=== PATIENT | female | born 1965 | race Caucasian/White ===

== ENCOUNTER → 2020-08-06 12:57 | Outpatient (CLI) | payer OTHER, SELFPAY ==
--- NOTE | ~2020-08-06 | CT_ITS ---
EXAMINATION: CT abdomen pelvis w con DATE: 08/06/2020 13:15 INDICATION: Left lower quadrant abdominal pain, fever. History of appendectomy, hysterectomy and chol ecystectomy. TECHNIQUE: Computed tomography (CT) of the abdomen and pelvis was performed with 100 cc Omnipaque 350 intravenous contrast. Automated exposure control and iterative reconstruction technique were employe d. Exam dose: 485.49 mGy-cm total exam DLP. COMPARISON: 11/03/2007 CT abdomen FINDINGS: The lung bases are clear. Normal heart size. No pericardial or pleural effusion. Status post cholecystectomy. No bile duct or pancreatic duct dilatation. No hepatic or pancreatic or splenic space-occupying mass lesion or splenomegaly. Normal morphology of the adrenal glands. No renal mass lesion or urinary tract calculus or hydroureteronephrosis. Normal caliber of the abdominal aorta. There are shotty nonenlarged periaortic and aortocaval lymph n odes. The urinary bladder is unremarkable. The uterus is absent. Status post appendectomy. There is prominent thickening of the wall of the distal ileum. Consider Crohn's disease. There is prominent thickening of the wall of the sigmoid colon and surrounding pericolic fat strandin g. There are multiple sigmoid diverticula. The findings suggest sigmoid diverticulitis. No abscess is identified. No intraperitoneal free air. Included skeletal structures are unremarkable; no suspicious osteolytic or osteoblastic lesions. IMPRESSION: Prominent thickening of the wall of sigmoid colon with associated pericolic fat strandin g in association with multiple sigmoid diverticula. Findings suggest sigmoid diverticulitis Thickening of the wall of the distal ileum, suggesting possible Crohn's disease Status post cholecystectomy Status post appendectomy Status post hysterectomy Reviewed, dictated and finalized at [facility]. Reviewed, dictated and finalized at [facility]. [facility] IMPRESSION: Prominent thickening of the wall of sigmoid colon with associated pericolic fat stranding in association with multiple sigmoid diverticula. Findi ngs suggest sigmoid diverticulitis Thickening of the wall of the distal ileum, suggesting possible Crohn's disease Status post cholecystectomy Status post appendectomy Status post hysterectomy
== END ==
PROVIDERS: PCP Family Medicine; Visit Provider Nurse Practitioner Family
DX: R50.9 Fever, unspecified (principal); Z90.49 Acquired absence of other specified parts of digestive tract
CPT/HCPCS: 74177; Q9967

== ENCOUNTER 2020-09-07 12:31 | Outpatient (CLI) | payer OTHER, SELFPAY ==
--- NOTE | 2020-09-07 12:53 | ECHO_ITS ---
Patient Info Name: Indra Cooper Age: 55 years : 1965 Gender: Female Ht: 65 in Wt: 150 lbs BSA: 1.78 m2 HR: 77 bpm BP: 141 / 90 mmHg Technical Quality: Good Exam Date: 09/07/2020 1:09 PM Exam Location: [facility] Patient Status: Outpatient Admit Date: 09/07/2020 Staff Ordering Physician: Isabella Ko Returns Processor: Brody Muniz RDCS, RT Attending Provider: Isabella Ko Referring Physician: Stefani CH; Exam Type: CA echo doppler color flow Study Info Indications R00.0 - Tachycardia, unspecified Complete two-dimensional, color flow and Doppler transthoracic echocardiogram is performed. Strain analysis performed. Summary 1. Complete two-dimensional, color flow and Doppler transthoracic echocardiogram is performed. 2. Left ventricular chamber dimension is normal. 3. Left ventricular systolic function is normal, estimated at 60-65%. 4. There is mildly increased left ventricular wall thickness. 5. The left ventricular diastolic function is grade I diastolic dysfunction. 6. E/e' 7 is not elevated. Left Ventricle E/e' 7 is not elevated. Left ventricular chamber dimension is normal. Left ventricular systolic function is normal, estimated at 60-65%. There is mildly increased left ventricular wall thickness. The left ventricular diastolic function is grade I diastolic dysfunction. Right Ventricle Right ventricular systolic function is normal and normal TAPSE 1.9 cm.. Right ventricular chamber dimension is normal. Left Atria Left atrial chamber dimension is normal. Right Atria Right atrial chamber dimension is normal. Aortic Valve The aortic valve is trileaflet. There is no aortic valve stenosis. There is no aortic valve regurgitation. Pulmonic Valve There is no pulmonic regurgitation. Mitral Valve There is no mitral valve stenosis. There is no mitral valve regurgitation. Tricuspid Valve There is no tricuspid valve regurgitation. Pericardium/Pleural There is no pericardial effusion. Inferior Vena Cava Normal inferior vena cava with >50% collapse upon inspiration consistent with normal right atrial pressure, 5 mmHg. Aorta The aortic root size at the sinus of Valsalva is normal. Left Ventricular Outflow Tract Name Value Normal LVOT 2D LVOT Diameter 2.0 cm LVOT Doppler LVOT Peak Gradient 4 mmHg LVOT Mean Gradient 2 mmHg LVOT VTI 20 cm LVOT VTI/AV VTI Ratio 0.7 LVOT Stroke Volume 63 ml LVOT CO 5.4 l/min LVOT CI 3.1 l/min/m2 Mitral Valve Name Value Normal MV Doppler MV Decel Upson 218 cm/s2 MV PHT 75 ms
== END 2020-09-07 12:32 | disposition home or self-care (01) ==
PROVIDERS: PCP Family Medicine; Visit Provider Nurse Practitioner Family
DX: R00.0 Tachycardia, unspecified (principal)
CPT/HCPCS: 93306

== ENCOUNTER 2020-10-12 15:13 | Outpatient (CLI) | payer OTHER, SELFPAY ==
[2020-10-12 16:20] LABS: Alanine Aminotransferase 11 U/L (4-35); Albumin Level 4.3 g/dL (3.5-5.1); Alkaline Phosphatase 50 U/L (38-126); Anion Gap 5 mmol/L (8-16); Aspartate Amino Transferase 30 U/L (14-36); Bilirubin,Total 0.4 mg/dL (0.2-1.3); Blood Urea Nitrogen 14 mg/dL (7-17); Calcium 8.6 mg/dL (8.4-10.2); Carbon Dioxide 32 mmol/L (22-30); Chloride 101 mmol/L (98-107); Cholesterol 209 mg/dL (0-200); Estimated Glomerular Filt Rate > 60; Glucose 82 mg/dL (65-105); HDL Direct 67 mg/dL; Potassium 3.9 mmol/L (3.4-5.0); Sodium 138 mmol/L (137-145); Triglycerides 84 mg/dL (<150)
[2020-10-12 16:31] LABS: LDL Cholesterol Direct 115 mg/dL
== END 2020-10-12 15:14 | disposition home or self-care (01) ==
LOC: ANHLAB 15:16
PROVIDERS: PCP Family Medicine; Visit Provider Internal Medicine Cardiovascular Disease
DX: E78.5 Hyperlipidemia, unspecified (principal)
CPT/HCPCS: 36415; 80053; 80061